=== PATIENT | male | born 1965 | race Caucasian/White ===

== ENCOUNTER 2021-03-19 10:13 | Emergency (ER) | payer OTHER ==
[2021-03-19] MEDS ORDERED: CYCLOBENZAPRINE10 M1 PO ×2 (11:15→11:28)
[2021-03-19 11:31] VITALS: BP 133/84
== END 2021-03-19 11:19 | disposition home or self-care (01) ==
LOC: ED 10:13
DX: M62.838 Other muscle spasm (principal)

== ENCOUNTER → 2021-10-01 | Outpatient (CLI) | payer OTHER ==
[~2021-10-01] MED LIST: CYCLOBENZAPRINE10 M1 PO
== END ==
LOC: AMSURD 12:15
DX: I49.3 Ventricular premature depolarization (principal)

== ENCOUNTER 2022-08-31 17:16 | Emergency (ER) | payer OTHER ==
[~2022-08-31] VITALS: Ht 167.6 cm; Wt 89.1 kg
[2022-08-31] MEDS ORDERED: ATORVASTATIN CA20 MG PO (17:27)
[2022-08-31 17:44] LABS: BASO # 0.03 K/mm3 (0.02-0.10); EOS # 0.14 K/mm3 (0.04-0.40); EOS % 2.3 % (0.0-4.0); HEMATOCRIT 46.2 % (42.0-52.0); HEMOGLOBIN 15.7 g/dL (13.5-18.0); LYMPH# 1.66 K/mm3 (1.50-4.00); MEAN CELL VOLUME 91 fl (78-100); MEAN CORPUSCULAR HEMOGLOBIN 31 pg (27-31); MEAN CORPUSCULAR HGB CONC 34 g/dL (33-37); MEAN PLATELET VOLUME 9.3 fl (7.4-10.4); MONO # 0.64 K/mm3 (0.20-0.80); NEU # 3.52 K/mm3 (1.40-6.50); PLATELET COUNT 251 K/mm3 (130-400); RED BLOOD COUNT 5.06 M/mm3 (4.20-5.60); RED CELL DISTRIBUTION WIDTH 12.5 % (11.5-14.5)
[2022-08-31 17:55] LABS: ALBUMIN 4.6 g/dL (3.5-5.0)
[2022-08-31 17:56] LABS: POTASSIUM 4.1 mmol/L (3.5-5.1); SODIUM 140 mmol/L (136-145)
[2022-08-31 17:57] LABS: CALCIUM 9.3 mg/dL (8.3-10.5)
[2022-08-31 17:58] LABS: GLUCOSE 122 mg/dL (75-110); TOTAL PROTEIN 6.9 g/dL (6.4-8.3)
[2022-08-31 17:59] LABS: CARBON DIOXIDE 24 mmol/L (22-29)
[2022-08-31 18:00] LABS: TOTAL BILIRUBIN 0.4 mg/dL (0.2-1.2)
[2022-08-31 18:03] LABS: AST-SGOT 29 U/L (5-34)
[2022-08-31 18:05] LABS: ALT/SGPT 49 U/L (0-55)
[2022-08-31 18:17] LABS: TROPONIN-I < 0.030 ng/mL (<0.030)
[2022-08-31 19:12] VITALS: BP 137/94
== END 2022-08-31 19:13 | disposition home or self-care (01) ==
LOC: ED 17:16
PROVIDERS: Physician Assistant
DX: R07.89 Other chest pain (principal); Z82.49 Family history of ischemic heart disease and other diseases of the circulatory system; Z28.310 Unvaccinated for COVID-19